=== PATIENT | male | born 2000 | race Caucasian/White ===

== ENCOUNTER 2021-07-11 09:29 | Outpatient (REF) | payer OTHER, SELFPAY ==
[2021-07-11 12:34] LABS: ~Hepatitis C Antibody Nonreactive (Nonreactive)
[2021-07-12 08:42] LABS: Syphilis Screen Nonreactive (Nonreactive)
== END 2021-07-11 09:30 | disposition home or self-care (01) ==
LOC: HO.LAB 09:29
DX: Z11.59 Encounter for screening for other viral diseases (principal)
CPT/HCPCS: 36415; 86780; 86803